=== PATIENT | male | born 1975 | race Caucasian/White ===

== ENCOUNTER 2016-12-12 07:12 | Emergency (ER) | payer MEDICAID ==
[~2016-12-12] VITALS: Ht 167.6 cm; Wt 57.0 kg
[2016-12-12 07:16] VITALS: Ht 167.6 cm; Wt 57.0 kg
--- NOTE | 2016-12-12 08:20 | ERD ---
ER Documentation Chief Complaint Date/Time DATE: 12/12/16 TIME: 08:18 Chief Complaint cough & upper back pain x6mths HPI 41-year-old male presents to the emergency department complaining of dry cough for the past 6 months. Patient states that he comes in today because he started coughing with regurgitation. He admits to having mild thoracic back pain with cough. He denies any fevers, shortness of breath, chest pain. ROS All systems reviewed and are negative except as per history of present illness. Medications Home Meds Active Scripts Azithromycin* (Zithromax*) 250 Mg Tablet, 250 MG PO .ZPACK DIRECTED, #6 TAB TAKE 500 MG (2 TABS) THE FIRST DAY THEN 250 MG (1 TAB) DAYS 2-5 Prov:ELVIS LOZADA PA-C 12/12/16 Acetaminophen* (Tylenol*) 325 Mg Tablet, 2 TAB PO Q6 Y for PAIN AND OR ELEVATED TEMP, #20 TAB Prov:ELVIS LOZADA PA-C 12/12/16 Benzonatate* (Tessalon Perle*) 100 Mg Capsule, 100 MG PO Q8H Y for COUGH, #20 CAP Prov:ELVIS LOZADA PA-C 12/12/16 Allergies Allergies: Coded Allergies: No Known Allergy (Unverified , 12/12/16) Physical Exam Vitals Vital Signs Date Time Temp Pulse Resp B/P Pulse Ox O2 Delivery O2 Flow Rate FiO2 12/12/16 07:16 98.2 77 22 121/75 97 Physical Exam Const: [] Head: Atraumatic Eyes: Normal Conjunctiva ENT: Normal External Ears, Nose and Mouth. Neck: Full range of motion..~ No meningismus. Resp: Clear to auscultation bilaterally Cardio: Regular rate and rhythm, no murmurs Abd: Soft, non tender, non distended. Normal bowel sounds Skin: No petechiae or rashes Back: No midline or flank tenderness Ext: No cyanosis, or edema Neur: Awake and alert Psych: Normal Mood and Affect Procedures/MDM 41-year-old male presents with dry cough for the past 6 months with regurgitation. Differentials include but not limited to Pneumonia, gastritis, postnasal drip, viral upper respiratory infection. Prescription for Z-Dion, Tessalon Perles and Tylenol was provided. I discussed with him to follow-up with his primary care physician. Chest x-ray Showed evidence of possible left lower lobe infiltrates therefore he will be treated for pneumonia. No evidence of effusion or pneumothorax. StAble to be discharged home he understands and agrees with plan Departure Diagnosis: Primary Impression: Pneumonia Condition: Stable ELVIS LOZADA PA-C Dec 12, 2016 08:20
[2016-12-12] MEDS ORDERED: LORA-186 PO (08:21)
[2016-12-12] MEDS ORDERED: OMEP20CA16 PO (08:21)
[2016-12-12] MEDS ORDERED: BENZ100C70 PO (08:25)
--- NOTE | 2016-12-12 08:43 | RADRPT ---
PROCEDURE: XR Chest. CLINICAL INDICATION: Cough TECHNIQUE: PA view of the chest. COMPARISON: No pertinent prior examinations were submitted for comparison. FINDINGS: The cardiomediastinal silhouette is normal. The aorta is normal. The lungs are hyperinflated. No ple ural effusion or pneumothorax is seen. Left infrahilar opacity is visualized which may represent vas cular shadow or infiltrate.. The osseous structures are intact. IMPRESSION: Question left infrahilar infiltrate. Lateral view is recommended if clinically indicated. RPTAT: HCNS Physician Po Date Time Electronically viewed and signed by Physician Po on 12/12/2016 08:42 /
[2016-12-12] MEDS ORDERED: AZIT250T94 PO (08:52)
[2016-12-12] MEDS ORDERED: ACET325T33 PO (08:52)
== END 2016-12-12 09:06 | disposition home or self-care (01) ==
LOC: FTE 07:12
DX: J18.9 Pneumonia, unspecified organism (principal)
CPT/HCPCS: 71010; Z7502

== ENCOUNTER 2016-12-26 06:10 | Emergency (ER) | payer MEDICAID ==
[~2016-12-26] VITALS: Ht 167.6 cm; Wt 56.5 kg
[~2016-12-26 06:10] MED LIST: ACET325T33 PO; AZIT250T94 PO; BENZ100C70 PO
[2016-12-26 06:13] VITALS: Ht 167.6 cm; Wt 56.5 kg
--- NOTE | 2016-12-26 06:30 | ERD ---
ER Documentation Chief Complaint Date/Time DATE: 12/26/16 TIME: 06:20 Chief Complaint cough x 3 weeks HPI 41-year-old male presents emergency department for productive cough for about a week. Stated he had productive cough for the last 3 days. Stated it felt like that a fever 2 days ago. But never took his temperature. Denies headache, dizziness, blurred vision, neck pain, shoulder pain, chest pain , back pain, abdominal pain, nausea, vomiting, urinary symptoms, fever, chills, recent antibiotic use in the last 3 months. No known drug allergies. No past medical history. No surgeries. Social: Works at a kitchen. Denies smoking, use of alcohol use of illegal drugs. ROS All systems reviewed and are negative except as per history of present illness. Medications Home Meds Active Scripts Cyclobenzaprine Hcl* (Cyclobenzaprine Hcl*) 10 Mg Tablet, 10 MG PO Q12, #10 TAB Prov:VANESSA PRADO 12/26/16 Acetaminophen* (Tylophen*) 500 Mg Capsule, 1 CAP PO Q6H Y for PAIN AND OR ELEVATED TEMP, #20 CAP Prov:VANESSA PRADO 12/26/16 Albuterol Sulfate* (Proair HFA*) 8.5 Gm Hfa.aer.ad, 2 PUFF INH Q4, #1 INHALER Prov:VANESSA PRADO 12/26/16 Azithromycin* (Zithromax*) 250 Mg Tablet, 250 MG PO .ZPACK DIRECTED, #6 TAB TAKE 500 MG (2 TABS) THE FIRST DAY THEN 250 MG (1 TAB) DAYS 2-5 Prov:VANESSA PRADO 12/26/16 Azithromycin* (Zithromax*) 250 Mg Tablet, 250 MG PO .ZPACK DIRECTED, #6 TAB TAKE 500 MG (2 TABS) THE FIRST DAY THEN 250 MG (1 TAB) DAYS 2-5 Prov:ELVIS LOZADA PA-C 12/12/16 Acetaminophen* (Tylenol*) 325 Mg Tablet, 2 TAB PO Q6 Y for PAIN AND OR ELEVATED TEMP, #20 TAB Prov:LEVIS LOZADA PA-C 12/12/16 Benzonatate* (Tessalon Perle*) 100 Mg Capsule, 100 MG PO Q8H Y for COUGH, #20 CAP Prov:ELVIS LOZADA Monae SAUCEDA 12/12/16 Allergies Allergies: Coded Allergies: No Known Allergy (Unverified , 12/12/16) PMhx/Soc Medical and Surgical Hx: pt denies Medical Hx, pt denies Surgical Hx Hx Alcohol Use: No Hx Substance Use: No Hx Tobacco Use: No Smoking Status: Never smoker Physical Exam Vitals Vital Signs Date Time Temp Pulse Resp B/P Pulse Ox O2 Delivery O2 Flow Rate FiO2 12/26/16 06:13 98.3 66 20 115/65 99 Physical Exam Const: [] Head: Atraumatic Eyes: Normal Conjunctiva ENT: Normal External Ears, Nose and Mouth. Neck: Full range of motion..~ No meningismus. Resp: Clear to auscultation bilaterally Cardio: Regular rate and rhythm, no murmurs Abd: Soft, non tender, non distended. Normal bowel sounds Skin: No petechiae or rashes Back: No midline or flank tenderness Ext: No cyanosis, or edema Neur: Awake and alert Psych: Normal Mood and Affect Procedures/MDM 41-year-old male presents emergency department for productive cough for about a week. Stated he had productive cough for the last 3 days. Stated it felt like that a fever 2 days ago. But never took his temperature. Physical exam: Lung sounds are clear to auscultation. Disease process was explained to the patient and family member. They verbalized understanding and agreed with the plan of care. Differential diagnosis: Pneumonia versus bronchitis versus upper respiratory infection Diagnosis: Acute bronchitis Prescription: Azithromycin. Pro-air. Flexeril. Tylenol. Follow-up with primary care physician the next 24-48 hours. All questions and concerns were answered. Patient verbalized understanding and agreed with the plan of care. Hemodynamically stable on discharge. Departure Diagnosis: Primary Impression: Cough Condition: Stable Additional Instructions: Primary care physician the next 24-48 hours. Come back in the emergency department for any new symptoms or any worsening symptoms. All questions and concerns were answered. Patient verbalized understanding and agreed with the plan of care. VANESSA PRADO Dec 26, 2016 06:30
[2016-12-26] MEDS ORDERED: ALBU8.5H3 INH (06:32)
[2016-12-26] MEDS ORDERED: AZIT250T94 PO (06:32)
[2016-12-26] MEDS ORDERED: ACET500C5 PO (06:33)
[2016-12-26] MEDS ORDERED: CYCL-319 PO (06:33)
== END 2016-12-26 06:48 | disposition home or self-care (01) ==
LOC: FTE 06:10
DX: R05 Cough (principal)
CPT/HCPCS: 99284